=== PATIENT | female | born 1970 | race Caucasian/White ===

== ENCOUNTER 2020-10-21 09:34 | Outpatient (CLI) | payer BC, SELFPAY ==
--- NOTE | 2020-10-21 09:41 | MM_ITS ---
WS: [id number] Exam: [id number] Date/Time of Exam: 10/21/2020 9:45 AM Reason For Exam: SCREENING VIEWS: MLO and CC views both breasts. Comparison made with prior exam of 09/27/2013 and 02/10/2018. Findings: There was no sign of mass, architectural distortion or suspicious calcification in either breast. Sc attered fibroglandular densities MM/[id number] Impression: BI-RADS: 2-Benign FOLLOW-UP: 1 Year Follow-up This mammogram was also analyzed by the Computer Aided Detection System [employer].
== END 2020-10-21 09:35 | disposition home or self-care (01) ==
LOC: RADSHAW 09:39
PROVIDERS: PCP Physician Assistant Medical; Visit Provider Physician Assistant Medical
DX: Z12.31 Encounter for screening mammogram for malignant neoplasm of breast (principal)
CPT/HCPCS: 77067